=== PATIENT | female | born 1990 | race Caucasian/White ===

== ENCOUNTER 2021-01-10 22:39 | Emergency (ER) | payer OTHER, SELFPAY ==
[2021-01-11 01:00] VITALS: BP 130/73; PULSE 82; RESP 18; TEMP 36.8; O2SAT 99; BMI 32.5
--- NOTE | 2021-01-11 01:04 | ED_ITS ---
HPI - General Adult General Chief complaint: General Medical <Tayo Hull MD - Last Filed: 01/11/21 23:54> Stated complaint: DYSTONIC RXN <Tayo Hull MD - Last Filed: 01/11/21 23:54> Time Seen by Provider: 01/11/21 00:19 <Tayo Hull MD - Last Filed: 01/11/21 23:54> Source: patient and family <Tayo Hull MD - Last Filed: 01/11/21 23:54> Mode of arrival: EMS <Tayo Hull MD - Last Filed: 01/11/21 23:54> Limitations: no limitations <Tayo Hull MD - Last Filed: 01/11/21 23:54> History of Present Illness HPI narrative: Patient no significant past medical history strong family history of seizures, patient's sister has history of seizure. Today just prior to arrival patient all of a sudden noticed left side getting cramps face to state last for about 20 minutes patient stayed alert during that time but was confused afterwards no tonic-clonic activity no incontinence no tongue bite. Patient does suffer with insomnia not on any medication. Denied use of tramadol Wellbutrin. Patient does drink occasionally <Tayo Hull MD - Last Filed: 01/11/21 23:54> Onset (ago): hour(s) <Tayo Hull MD - Last Filed: 01/11/21 23:54> Related Data Allergies/adverse reactions: Allergies Allergy/AdvReac Type Severity Reaction Status Date / Time morphine [MORPHINE] Allergy Mild RASH,HIVES Unverified 07/19/20 16:07 sulfamethoxazole Allergy Mild hives Unverified 07/19/20 16:07 [From BACTRIM] trimethoprim [From BACTRIM] Allergy Mild hives Unverified 07/19/20 16:07 aripiprazole [From ABILIFY] Allergy Unknown LOST MY Unverified 07/19/20 16:07 MEMORY latex [LATEX] Allergy Unknown ITCHING Unverified 07/19/20 16:07 latex Allergy Unknown anaphylaxis Uncoded 06/27/20 00:00 <Tayo Hull MD - Last Filed: 01/11/21 23:54> Review of Systems Review of Systems: Constitutional : No Weight loss, No Fever, No Chills ENT/Mouth : No sore throat, No Rhinorrhea Eyes: No Eye Pain, No Swelling Cardiovascular : No Chest Pain, no palpitations Respiratory : No Cough, No Sputum, no shortness of breath Gastrointestinal : no Nausea, No Vomiting, No Diarrhea, No abdominal Pain, no black stools Genitourinary : No Dysuria, No Urinary Frequency Musculoskeletal : No joint pain, No Myalgias, No Joint Swelling Skin : No Skin Lesions, No rash Neuro : No Weakness, No Numbness, No Dizziness, No Headache Psych : No Anxiety/Panic, No Depression Heme/Lymph: No Bruising, No Lymphadenopathy Endocrine : No Polyuria, No Polydipsia All other systems reviewed and are negative <Tayo Hull MD - Last Filed: 01/11/21 23:54> [facility] Social History Social History: Social History Advance Directives: No <Tayo Hull MD - Last Filed: 01/11/21 23:54> Physical Exam Vital Signs: Vital Signs: Last Vital Signs Temp 98.1 F 01/11/21 02:00 Pulse 79 01/11/21 02:00 Resp 18 01/11/21 02:00 BP 128/79 01/11/21 02:00 Pulse Ox 98 01/11/21 02:00 Body Mass Index 32.5 <Tayo Hull MD - Last Filed: 01/11/21 23:54> Vital Signs: Last Vital Signs Temp 98.1 F 01/11/21 02:00 Pulse 79 01/11/21 02:00 Resp 18 01/11/21 02:00 BP 128/79 01/11/21 02:00 Pulse Ox 98 01/11/21 02:00 Body Mass Index 32.5 <Erika Bowman MD - Last Filed: 01/11/21 03:16> Appearance: Alert. Oriented X3. No acute distress. Eyes: Pupils equal, round and reactive to light. ENT: Pharynx normal. No tongue bite Neck: Normal inspection. Neck supple. CVS: Normal heart rate and rhythm. Pulses normal. Respiratory: No respiratory distress. Breath sounds normal. Abdomen: Soft and nontender. Bowel sounds are present, no mass palpable, no CVA tenderness Skin: Skin warm and dry. Normal skin color. Normal skin turgor. Extremities: No lower extremity edema. Neuro: Oriented X 3. No motor deficit. No sensory deficit. <Tayo Hull MD - Last Filed: 01/11/21 23:54> Course Course Course Narrative: Review of all laboratory investigations negative for acute findings. Results discussed with patient at bedside and she was instructed to follow up with her primary care provider in the next 1-2 days. <Erika Bowman MD - Last Filed: 01/11/21 03:16> Medical Decision Making MDM Narrative Medical decision making narrative: Patient's symptoms likely with complex seizure possible dystonic reaction. Patient advised to follow-up with neurologist. Patient previous labs were stable but today patient POC was 214 in 04/2019 blood sugar was 84 will recheck labs and HbA1c <Tayo Hull MD - Last Filed: 01/11/21 23:54> Lab Data Result diagrams: : 01/11/21 02:11 01/11/21 02:11 <Tayo Hull MD - Last Filed: 01/11/21 23:54> Labs: Lab Results 01/11/21 01/11/21 01/11/21 Range/Units 01:22 02:11 02:11 WBC 7.9 (4.8-10.8) X10*3/uL RBC 4.75 (4.20-5.50) X10*6/uL Hgb 11.0 L (12.0-16.0) g/dl Hct 35.7 L (37-47) % MCV 75.2 L (80-98) fL MCH 23.2 L (27.0-33.0) pg MCHC 30.8 L (31.0-35.0) g/dl RDW 14.6 (11.0-16.0) % Plt Count 156 L (160-400) X10*3/uL MPV 12.1 (9.4-12.3) fL Immature Gran % (Auto) 0.4 (0.0-0.4) % Neut % (Auto) 66.1 (45-73) % Lymph % (Auto) 27.8 (20-40) % Angelina % (Auto) 5.3 (2-11) % Eos % (Auto) 0.1 (0-4) % Baso % (Auto) 0.3 (0-2) % Lymph # (Auto) 2.2 (1.2-4.9) X10*3/uL Angelina # (Auto) 0.4 (0.1-1.2) X10*3/uL Eos # (Auto) 0.0 (0.0-0.4) X10*3/uL Baso # (Auto) 0.0 (0.0-0.2) X10*3/uL Abs Immat Gran (auto) 0.03 (0.00-0.03) X10*3/uL Absolute Neuts (auto) 5.2 (2.0-8.3) X10*3/uL Absolute Nucleated RBC 0.000 (0.0-0.012) X10*3/uL Nucleated RBC % (auto) 0.0 (0.0-0.2) /100WBC Sodium 139 (135-145) mmol/L Potassium 3.9 (3.3-5.1) mmol/L Chloride 104 (96-108) mmol/L Carbon Dioxide 25 (22-29) mmol/L Anion Gap 14 (12-20) BUN 13 (9-16) mg/dL Creatinine 0.71 (0.5-1.4) mg/dL Estim Creat Clear Calc 125.3 Estimated GFR > 60 POC Glucose 214 H (60-115) mg/dL Random Glucose 204 H (60-115) mg/dL Estimat Average Glucose mg/dL Hemoglobin A1c % % Calcium 8.7 (8.4-10.2) mg/dL Urine Color Urine Appearance Urine pH (5.0-8.0) Ur Specific [place] (1.005-1.025) Urine Protein (NEG-TRACE) MG/DL Urine Glucose (UA) (NEG) MG/DL Urine Ketones (NEG) MG/DL Urine Blood (NEG) Urine Nitrite (NEG) Ur Leukocyte Esterase (NEG) Urine Test (NEGATIVE) 01/11/21 01/11/21 01/11/21 Range/Units 02:11 02:20 02:20 WBC (4.8-10.8) X10*3/uL RBC (4.20-5.50) X10*6/uL Hgb (12.0-16.0) g/dl Hct (37-47) % MCV (80-98) fL MCH (27.0-33.0) pg MCHC (31.0-35.0) g/dl RDW (11.0-16.0) % Plt Count (160-400) X10*3/uL MPV (9.4-12.3) fL Immature Gran % (Auto) (0.0-0.4) % Neut % (Auto) (45-73) % Lymph % (Auto) (20-40) % Angelina % (Auto) (2-11) % Eos % (Auto) (0-4) % Baso % (Auto) (0-2) % Lymph # (Auto) (1.2-4.9) X10*3/uL Angelina # (Auto) (0.1-1.2) X10*3/uL Eos # (Auto) (0.0-0.4) X10*3/uL Baso # (Auto) (0.0-0.2) X10*3/uL Abs Immat Gran (auto) (0.00-0.03) X10*3/uL Absolute Neuts (auto) (2.0-8.3) X10*3/uL Absolute Nucleated RBC (0.0-0.012) X10*3/uL Nucleated RBC % (auto) (0.0-0.2) /100WBC Sodium (135-145) mmol/L Potassium (3.3-5.1) mmol/L Chloride (96-108) mmol/L Carbon Dioxide (22-29) mmol/L Anion Gap (12-20) BUN (9-16) mg/dL Creatinine (0.5-1.4) mg/dL Estim Creat Clear Calc Estimated GFR POC Glucose (60-115) mg/dL Random Glucose (60-115) mg/dL Estimat Average Glucose 137 mg/dL Hemoglobin A1c % 6.4 % Calcium (8.4-10.2) mg/dL Urine Color DARK YELLOW Urine Appearance CLEAR Urine pH 6.0 (5.0-8.0) Ur Specific [place] >= 1.030 H (1.005-1.025) Urine Protein NEG (NEG-TRACE) MG/DL Urine Glucose (UA) 250 H (NEG) MG/DL Urine Ketones NEG (NEG) MG/DL Urine Blood NEG (NEG) Urine Nitrite NEG (NEG) Ur Leukocyte Esterase NEG (NEG) Urine Test NEGATIVE (NEGATIVE) <Tayo Hull MD - Last Filed: 01/11/21 23:54> Lab Results 01/11/21 01/11/21 01/11/21 Range/Units 01:22 02:11 02:11 WBC 7.9 (4.8-10.8) X10*3/uL RBC 4.75 (4.20-5.50) X10*6/uL Hgb 11.0 L (12.0-16.0) g/dl Hct 35.7 L (37-47) % MCV 75.2 L (80-98) fL MCH 23.2 L (27.0-33.0) pg MCHC 30.8 L (31.0-35.0) g/dl RDW 14.6 (11.0-16.0) % Plt Count 156 L (160-400) X10*3/uL MPV 12.1 (9.4-12.3) fL Immature Gran % (Auto) 0.4 (0.0-0.4) % Neut % (Auto) 66.1 (45-73) % Lymph % (Auto) 27.8 (20-40) % Angelina % (Auto) 5.3 (2-11) % Eos % (Auto) 0.1 (0-4) % Baso % (Auto) 0.3 (0-2) % Lymph # (Auto) 2.2 (1.2-4.9) X10*3/uL Angelina # (Auto) 0.4 (0.1-1.2) X10*3/uL Eos # (Auto) 0.0 (0.0-0.4) X10*3/uL Baso # (Auto) 0.0 (0.0-0.2) X10*3/uL Abs Immat Gran (auto) 0.03 (0.00-0.03) X10*3/uL Absolute Neuts (auto) 5.2 (2.0-8.3) X10*3/uL Absolute Nucleated RBC 0.000 (0.0-0.012) X10*3/uL Nucleated RBC % (auto) 0.0 (0.0-0.2) /100WBC Sodium 139 (135-145) mmol/L Potassium 3.9 (3.3-5.1) mmol/L Chloride 104 (96-108) mmol/L Carbon Dioxide 25 (22-29) mmol/L Anion Gap 14 (12-20) BUN 13 (9-16) mg/dL Creatinine 0.71 (0.5-1.4) mg/dL Estim Creat Clear Calc 125.3 Estimated GFR > 60 POC Glucose 214 H (60-115) mg/dL Random Glucose 204 H (60-115) mg/dL Estimat Average Glucose mg/dL Hemoglobin A1c % % Calcium 8.7 (8.4-10.2) mg/dL Urine Color Urine Appearance Urine pH (5.0-8.0) Ur Specific [place] (1.005-1.025) Urine Protein (NEG-TRACE) MG/DL Urine Glucose (UA) (NEG) MG/DL Urine Ketones (NEG) MG/DL Urine Blood (NEG) Urine Nitrite (NEG) Ur Leukocyte Esterase (NEG) Urine Test (NEGATIVE) 01/11/21 01/11/21 01/11/21 Range/Units 02:11 02:20 02:20 WBC (4.8-10.8) X10*3/uL RBC (4.20-5.50) X10*6/uL Hgb (12.0-16.0) g/dl Hct (37-47) % MCV (80-98) fL MCH (27.0-33.0) pg MCHC (31.0-35.0) g/dl RDW (11.0-16.0) % Plt Count (160-400) X10*3/uL MPV (9.4-12.3) fL Immature Gran % (Auto) (0.0-0.4) % Neut % (Auto) (45-73) % Lymph % (Auto) (20-40) % Angelina % (Auto) (2-11) % Eos % (Auto) (0-4) % Baso % (Auto) (0-2) % Lymph # (Auto) (1.2-4.9) X10*3/uL Angelina # (Auto) (0.1-1.2) X10*3/uL Eos # (Auto) (0.0-0.4) X10*3/uL Baso # (Auto) (0.0-0.2) X10*3/uL Abs Immat Gran (auto) (0.00-0.03) X10*3/uL Absolute Neuts (auto) (2.0-8.3) X10*3/uL Absolute Nucleated RBC (0.0-0.012) X10*3/uL Nucleated RBC % (auto) (0.0-0.2) /100WBC Sodium (135-145) mmol/L Potassium (3.3-5.1) mmol/L Chloride (96-108) mmol/L Carbon Dioxide (22-29) mmol/L Anion Gap (12-20) BUN (9-16) mg/dL Creatinine (0.5-1.4) mg/dL Estim Creat Clear Calc Estimated GFR POC Glucose (60-115) mg/dL Random Glucose (60-115) mg/dL Estimat Average Glucose 137 mg/dL Hemoglobin A1c % 6.4 % Calcium (8.4-10.2) mg/dL Urine Color DARK YELLOW Urine Appearance CLEAR Urine pH 6.0 (5.0-8.0) Ur Specific [place] >= 1.030 H (1.005-1.025) Urine Protein NEG (NEG-TRACE) MG/DL Urine Glucose (UA) 250 H (NEG) MG/DL Urine Ketones NEG (NEG) MG/DL Urine Blood NEG (NEG) Urine Nitrite NEG (NEG) Ur Leukocyte Esterase NEG (NEG) Urine Test NEGATIVE (NEGATIVE) <Erika Bowman MD - Last Filed: 01/11/21 03:16> Discharge Plan Discharge Clinical Impression: Hyperglycemia Complex partial seizure Qualifiers: Epilepsy type: partial symptomatic Intractability: not intractable Status epilepticus: without status epilepticus Qualified Code(s): G40.209 - Localization-related (focal) (partial) symptomatic epilepsy and epileptic syndromes with complex partial seizures, not intractable, without status epilepticus <Tayo Hull MD - Last Filed: 01/11/21 23:54> Patient Disposition: Home, Self-Care <Tayo Hull MD - Last Filed: 01/11/21 23:54> Instructions: Type 2 Diabetes in Adults: New Diagnosis (ED), New-Onset Seizure in Adults (ED), Diabetes and Exercise (ED) <Tayo Hull MD - Last Filed: 01/11/21 23:54> Additional Instructions: You possibly had complex partial seizure although it is not confirmed. Follow-up with neurologist/PCP for further evaluatio Follow-up with PCP for elevated blood sugar <Tayo Hull MD - Last Filed: 01/11/21 23:54> Referrals: Physician,None [Primary Care Provider] - 2 days <Tayo Hull MD - Last Filed: 01/11/21 23:54> Interventions: ED Discharge Assessment Last Done: 01/11/21 03:26 <Tayo Hull MD - Last Filed: 01/11/21 23:54> Discharge Date/Time: 01/11/21 03:28 <Tayo Hull MD - Last Filed: 01/11/21 23:54>
[2021-01-11 01:30] LABS: Glucose, Whole Blood 214 mg/dL (60-115)
[2021-01-11] MEDS: LORazepam 0.5 MG TABLET PO (01:34)
[2021-01-11 02:00] VITALS: BP 128/79; PULSE 79; RESP 18; TEMP 36.7; O2SAT 98
[2021-01-11 02:17] LABS: Basophils Percent Auto 0.3 % (0-2); Eosinophils Percent Auto 0.1 % (0-4); Hematocrit 35.7 % (37-47); Imm Gran Abs Auto 0.03 X10*3/uL (0.00-0.03); Imm Gran Pct Auto 0.4 % (0.0-0.4); Lymphocytes Absolute Auto 2.2 X10*3/uL (1.2-4.9); Lymphocytes Percent Auto 27.8 % (20-40); MANUAL DIFF FLAG NO; Mean Corpuscular HGB Conc 30.8 g/dl (31.0-35.0); Mean Corpuscular Hemoglobin 23.2 pg (27.0-33.0); Mean Corpuscular Volume 75.2 fL (80-98); Mean Platelet Volume 12.1 fL (9.4-12.3); Monocytes Absolute Auto 0.4 X10*3/uL (0.1-1.2); Monocytes Percent Auto 5.3 % (2-11); Neutrophils Absolute Auto 5.2 X10*3/uL (2.0-8.3); Neutrophils Percent Auto 66.1 % (45-73); Platelet Count 156 X10*3/uL (160-400); Red Blood Count 4.75 X10*6/uL (4.20-5.50); Red Cell Distribution Width 14.6 % (11.0-16.0); White Blood Count 7.9 X10*3/uL (4.8-10.8)
[2021-01-11 02:35] LABS: Glucose Urine UA 250 MG/DL (NEG); Leukocyte Esterase Urine NEG (NEG); Nitrite Urine NEG (NEG); Specific Gravity - Urine >= 1.030 (1.005-1.025); Urine Blood NEG (NEG); Urine Ketones NEG (NEG); Urine Protein NEG (NEG-TRACE)
[2021-01-11 02:41] LABS: UPreg QC Valid YES; Urine Pregnancy NEGATIVE (NEGATIVE)
[2021-01-11 02:43] LABS: Appearance Urine CLEAR; Color Urine DARK YELLOW
[2021-01-11 02:44] LABS: Anion Gap 14 (12-20); Blood Urea Nitrogen 13 mg/dL (9-16); Calcium 8.7 mg/dL (8.4-10.2); Carbon Dioxide 25 mmol/L (22-29); Chloride 104 mmol/L (96-108); Creatinine Clr Calc Pharmacy 125.3; Estimated Glomerular Filt Rate > 60; Glucose Random 204 mg/dL (60-115); Potassium 3.9 mmol/L (3.3-5.1); Sodium 139 mmol/L (135-145)
[2021-01-11 03:41] LABS: Estimated Average Glucose 137 mg/dL; Hemoglobin A1c % 6.4 %
== END 2021-01-11 03:28 | disposition home or self-care (01) ==
PROVIDERS: Student in an Organized Health Care Education/Training Program; Emergency Provider Internal Medicine
DX: G40.209 Localization-related (focal) (partial) symptomatic epilepsy and epileptic syndromes with complex partial seizures, not intractable, without status epilepticus (principal); R73.9 Hyperglycemia, unspecified
CPT/HCPCS: 36415; 80048; 81003; 81025; 82947; 83036; 85025; 99283; 99284

== ENCOUNTER 2021-01-30 01:21 | Emergency (ER) | payer OTHER, SELFPAY ==
[2021-01-30 01:27] VITALS: BP 138/76; PULSE 88; RESP 16; TEMP 36.8; O2SAT 98; BMI 34.3
--- NOTE | 2021-01-30 01:42 | PC.NURSE ---
MD at bedside for primary eval. Pt refusing medication for anxiety at this time. IV established due to SZ history.
[2021-01-30] MEDS: Cyclobenzaprine HCl 10 MG TABLET PO (02:08)
[2021-01-30] MEDS: hydrOXYzine HCL 25 MG TABLET PO (02:09)
--- NOTE | 2021-01-30 02:09 | PC.NURSE ---
Pt calm and cooperative at this time. Pt requesting medication for anxiety and a muscle relaxer for her back. Pt provided with ice packs and a warm blanket for comfort. VSS. Pt awaiting repeat eval by . Continue to monitor.
--- NOTE | 2021-01-30 02:23 | ED_ITS ---
HPI - Anxiety General Chief Complaint: Anxiety Stated Complaint: ?SEIZURE Time Seen by Provider: 01/30/21 02:04 Source: patient Mode of arrival: ambulatory Limitations: no limitations History of Present Illness HPI narrative: Patient has history of anxiety chronic back pain earlier came with her mother who left patient was very agitated and hostile yelling at security had a panic attack fell backward but caught by the staff without any any injury had a pseudo type seizures came here in the ER agitated and angry very anxious hyperventilate unhappy with the staff and provider. History of similar episodes in the past per staff Related Data Previous Rx's Medication Instructions Recorded cyclobenzaprine 10 mg PO Q8H #20 tab 01/30/21 lorazepam [Ativan] 1 mg PO DAILY PRN #14 tab 01/30/21 oxycodone 5 mg PO Q6H PRN #20 tab 01/30/21 Allergies Allergy/AdvReac Type Severity Reaction Status Date / Time morphine [MORPHINE] Allergy Mild RASH,HIVES Unverified 01/30/21 01:32 sulfamethoxazole Allergy Mild hives Unverified 01/30/21 01:32 [From BACTRIM] trimethoprim [From BACTRIM] Allergy Mild hives Unverified 01/30/21 01:32 aripiprazole [From ABILIFY] Allergy Unknown LOST MY Unverified 01/30/21 01:32 MEMORY latex [LATEX] Allergy Unknown ITCHING Unverified 01/30/21 01:32 latex Allergy Unknown anaphylaxis Uncoded 01/30/21 01:32 Review of Systems Review of Systems: Constitutional : No Weight loss, No Fever, No Chills ENT/Mouth : No sore throat, No Rhinorrhea Eyes: No Eye Pain, No Swelling Cardiovascular : No Chest Pain, no palpitations Respiratory : No Cough, No Sputum, no shortness of breath Gastrointestinal : no Nausea, No Vomiting, No Diarrhea, No abdominal Pain, no black stools Genitourinary : No Dysuria, No Urinary Frequency Musculoskeletal : No joint pain, No Myalgias, No Joint Swelling Skin : No Skin Lesions, No rash Neuro : No Weakness, No Numbness, No Dizziness, No Headache Psych : ++Anxiety/Panic, No Depression Heme/Lymph: No Bruising, No Lymphadenopathy Endocrine : No Polyuria, No Polydipsia All other systems reviewed and are negative [facility] Past Medical History Medical History Asthma Diabetes Hypertension Migraines Seizure Social History Social History Advance Directives: No Physical Exam Vital Signs: Vital Signs: Last Vital Signs Temp 98.3 F 01/30/21 01:27 Pulse 84 01/30/21 02:28 Resp 16 01/30/21 02:28 BP 112/58 L 01/30/21 02:28 Pulse Ox 99 01/30/21 02:28 Body Mass Index 34.3 Const: General: comfortable, anxious and other (Crying shouting very anxious) Nutritional Appearance: average body habitus Orientation/consciousness: patient oriented x3 HENMT: Head: Yes normocephalic and Yes atraumatic Eyes: General: appearance normal, both eyes and all related structures Neck: Neck: Yes normal visual inspection, Yes full ROM and No midline deformity Chest: Chest palpation & inspection: normal inspection of the chest and normal palpation of entire chest wall Resp: Effort & Inspection: normal respiratory effort Auscultation: clear to auscultation bilaterally, no crackles, no rales and no rhonchi Cardio: Palpation: normal PMI Rate: regular rate Rhythm: regular rhythm Heart sounds: S1 normal heart sound present and S2 normal heart sound present Peripheral pulses: Peripheral pulses 2+ throughout GI: Inspection: Yes normal to inspection Palpation (GI): Soft to palpation and nontender Auscultation: normal bowel sounds : General: Yes no CVA tenderness Back/Spine/Pelvis: Back: no CVA tenderness Cervical Spine: normal cervical lordosis and cervical ROM normal Thoracic/Lumbar Spine: paraspinal muscle tenderness, No thoracic spinal tenderness and No lumbar spinal tenderness Skin: General skin exam: no rashes or lesions noted Neuro: General: patient oriented x3, tone normal, moves all extremities, no focal motor deficits and CN's II-XI intact bilaterally Extrem: General: Yes normal to inspection, Yes full ROM and Yes normal gait Psych: Speech and movement: Psychomotor agitation in speech present Affect: Anxious affect present Thought content: Normal thought content present Insight: Good insight present (Psych) Judgement: Good judgement present (Psych) MDM - Anxiety MDM Narrative Medical decision making narrative: Patient with acute anxiety attack with chronic back pain felt better after Ativan will discharge patient home on pain medication and Ativan and advised to follow with PCP Discharge Plan Discharge Clinical Impression: Acute anxiety Back pain Qualifiers: Back pain location: low back pain Chronicity: chronic Back pain laterality: bilateral Sciatica presence: without sciatica Qualified Code(s): M54.5 - Low back pain Patient Disposition: Home, Self-Care Instructions: Chronic Back Pain (DC), Anxiety (ED) Additional Instructions: Rest at home, take medication as prescribed follow-up with PCP Prescriptions: New cyclobenzaprine 10 mg tablet 10 mg PO Q8H Qty: 20 RF: 0 oxycodone 5 mg tablet 5 mg PO Q6H PRN (Reason: Pain (Scale Score 4-6)) Qty: 20 RF: 0 lorazepam [Ativan] 1 mg tablet 1 mg PO DAILY PRN (Reason: anxiety) Qty: 14 RF: 0
[2021-01-30 02:28] VITALS: BP 112/58; PULSE 84; RESP 16; O2SAT 99
== END 2021-01-30 02:45 | disposition home or self-care (01) ==
PROVIDERS: Emergency Provider Internal Medicine; PCP Internal Medicine
DX: F41.9 Anxiety disorder, unspecified (principal); M54.5 Low back pain; E11.9 Type 2 diabetes mellitus without complications; I10 Essential (primary) hypertension
CPT/HCPCS: 99283; 99284

== ENCOUNTER 2021-02-07 12:31 | Outpatient (REF) | payer OTHER, SELFPAY | END 2021-02-07 12:32 | disposition home or self-care (01) | LOC: HO.LAB 12:31 | PROVIDERS: Visit Provider Internal Medicine | DX: Z20.822 Contact with and (suspected) exposure to COVID-19 (principal) | CPT/HCPCS: C9803; U0003; U0005 ==

== ENCOUNTER 2022-03-27 10:58 | Outpatient (REF) | payer OTHER, SELFPAY ==
[2022-03-27 11:15] LABS: MANUAL DIFF FLAG NO
[2022-03-27 11:55] LABS: Basophils Percent Auto 0.3 % (0-2); Eosinophils Percent Auto 0.2 % (0-4); Hematocrit 36.4 % (37.0-47.0); Hemoglobin 11.3 g/dl (12.0-16.0); Imm Gran Abs Auto 0.04 X10*3/uL (0.00-0.03); Imm Gran Pct Auto 0.6 % (0.0-0.4); Lymphocytes Absolute Auto 1.9 X10*3/uL (1.2-4.9); Lymphocytes Percent Auto 30.4 % (20-40); Mean Corpuscular Hemoglobin 24.3 pg (27.0-33.0); Mean Corpuscular Volume 78.3 fL (80.0-98.0); Mean Platelet Volume 12.1 fL (9.4-12.3); Monocytes Absolute Auto 0.2 X10*3/uL (0.1-1.2); Monocytes Percent Auto 3.7 % (2-11); Neutrophils Percent Auto 64.8 % (45-73); Platelet Count 147 X10*3/uL (160-400); Red Blood Count 4.65 X10*6/uL (4.20-5.50); Red Cell Distribution Width 15.5 % (11.0-16.0); White Blood Count 6.2 X10*3/uL (4.8-10.8)
[2022-03-27 12:12] LABS: Estimated Average Glucose 143 mg/dL; Hemoglobin A1C 148.6334 umol/L; Hemoglobin A1c % 6.6 %
[2022-03-27 12:20] LABS: Alanine Aminotransferase 65 U/L (0-31); Albumin Level 4.1 g/dL (3.5-5.0); Alkaline Phosphatase 52 U/L (39-117); Anion Gap 12 (12-20); Aspartate Amino Transferase 50 U/L (5-31); Bilirubin Total 1.3 mg/dL (0.0-1.0); Blood Urea Nitrogen 10 mg/dL (9-16); Calcium 8.8 mg/dL (8.4-10.2); Carbon Dioxide 26 mmol/L (22-29); Chloride 107 mmol/L (96-108); Estimated Glomerular Filt Rate > 60; Glucose Random 130 mg/dL (60-115); Potassium 4.1 mmol/L (3.3-5.1); Sodium 141 mmol/L (135-145); Total Protein 7.3 g/dL (6.5-8.0)
[2022-03-27 12:31] LABS: TSH reflex Free T4 1.69 uIU/mL (0.32-4.0); Vitamin D 25-OH Total 15.2 ng/mL (>30)
[2022-03-27 13:00] LABS: Folate 10.4 ng/mL (> or = 4.0); Vitamin B12 430 pg/mL (200-900)
== END 2022-03-27 10:59 | disposition home or self-care (01) ==
LOC: HO.LAB 10:58
PROVIDERS: PCP Internal Medicine; Visit Provider Nurse Practitioner Family
DX: M54.50 Low back pain, unspecified (principal); Z13.29 Encounter for screening for other suspected endocrine disorder; E11.9 Type 2 diabetes mellitus without complications
CPT/HCPCS: 36415; 80053; 82306; 82607; 82746; 83036; 84443; 85025

== ENCOUNTER 2022-11-24 01:46 | Emergency (ER) | payer OTHER, SELFPAY ==
[2022-11-24 01:48] VITALS: BP 123/64; BP 129/64; PULSE 70; PULSE 76; RESP 23; TEMP 36.8; O2SAT 98; O2SAT 99; BMI 38.5
--- NOTE | 2022-11-24 02:05 | ECG_ITS ---
Test Reason : SEIZURE Blood Pressure : / mmHG Vent. Rate : 072 BPM Atrial Rate : 072 BPM P-R Int : 240 ms QRS Dur : 078 ms QT Int : 374 ms P-R-T Axes : 028 001 014 degrees QTc Int : 409 ms Sinus rhythm with 1st degree A-V block Cannot rule out Anterior infarct , age undetermined ; could be related to body habitus and lead placement Abnormal ECG No significant changes when compared with the previous EKG of 11 apr 2019 Referred By: Robles Spencer Electronically Signed By:CLEMENT LONDONO
[2022-11-24] MEDS: LORazepam 1 MG TABLET 2 MG PO (02:13)
[2022-11-24 02:27] LABS: Basophils Percent Auto 0.5 % (0-2); Hematocrit 36.7 % (37.0-47.0); Imm Gran Abs Auto 0.02 X10*3/uL (0.00-0.03); Imm Gran Pct Auto 0.3 % (0.0-0.4); Lymphocytes Absolute Auto 1.8 X10*3/uL (1.2-4.9); MANUAL DIFF FLAG NO; Mean Corpuscular HGB Conc 32.7 g/dl (31.0-35.0); Mean Corpuscular Hemoglobin 24.2 pg (27.0-33.0); Mean Platelet Volume 11.8 fL (9.4-12.3); Monocytes Absolute Auto 0.5 X10*3/uL (0.1-1.2); Monocytes Percent Auto 5.9 % (2-11); Neutrophils Absolute Auto 5.3 x10*3/uL (2.0-8.3); Neutrophils Percent Auto 69.3 % (45-73); Platelet Count 149 X10*3/uL (160-400); Red Blood Count 4.96 X10*6/uL (4.20-5.50); Red Cell Distribution Width 13.9 % (11.0-16.0); White Blood Count 7.6 X10*3/uL (4.8-10.8)
--- NOTE | 2022-11-24 02:30 | PC.NURSE ---
this rn assumed care @ 0148. pt a+o x 4 at this time. pt placed on panel monitor. seizure precautions in place. ekg and blood work obtained. pt provider with warm blanket and portable phone at this time. pt resting comfortably on stretcher at this time
[2022-11-24 02:44] LABS: Lactic Acid 1.3 mmol/L (0.5-2.0)
[2022-11-24 02:49] LABS: Alanine Aminotransferase 51 U/L (0-31); Alkaline Phosphatase 92 U/L (39-117); Anion Gap 15 (12-20); Aspartate Amino Transferase 23 U/L (5-31); Bilirubin Total 1.3 mg/dL (0.0-1.0); Blood Urea Nitrogen 12 mg/dL (9-16); Calcium 9.1 mg/dL (8.4-10.2); Carbon Dioxide 23 mmol/L (22-29); Chloride 104 mmol/L (96-108); Creatinine Clr Calc Pharmacy 136.4; Estimated Glomerular Filt Rate > 60; Glucose Random 316 mg/dL (60-115); Sodium 138 mmol/L (135-145); Total Protein 6.9 g/dL (6.5-8.0)
[2022-11-24 02:51] LABS: Ethanol < 10 mg/dL
[2022-11-24 03:23] VITALS: BP 124/81; PULSE 69; RESP 21; O2SAT 99
[2022-11-24] MEDS: 0.9 % Sodium Chloride 1,000 ML 999 ML IV (03:44)
[2022-11-24] MEDS: Insulin Regular, Human 100 UNIT/ML 3 ML VIAL IVPUSH (03:48)
--- NOTE | 2022-11-24 03:50 | PC.NURSE ---
pt repositioned to back HOB elevated. pt medicated according to mar
[2022-11-24] MEDS: Ketorolac Tromethamine 15 MG/ML VIAL IVPUSH (03:57)
--- NOTE | 2022-11-24 04:01 | PC.NURSE ---
@ 2468 pt reported 08/11 migraine GAO to this rn. This rn made Dr pinto aware at this time. MD placed order for IV ketorolac 15mg. pt medicated according to mar. pt provided with wash cloth to place over eyes to block lights from hallway
--- NOTE | 2022-11-24 04:03 | PC.NURSE ---
@ 4255 pt reported 08/11 migraine GAO to this rn. This rn made Dr emanuel aware at this time. MD placed order for IV ketorolac 15mg. pt medicated according to mar. pt provided with wash cloth to place over eyes to block lights from hallway
[2022-11-24 05:06] LABS: Glucose, Whole Blood 209 mg/dL (60-115)
--- NOTE | 2022-11-24 05:17 | ED_ITS ---
HPI - Seizure General Chief Complaint: Seizure Stated Complaint: SEIZURE Time Seen by Provider: 11/24/22 01:52 Source: patient Mode of arrival: EMS Limitations: no limitations History of Present Illness HPI Narrative: 32-year-old female who presents emergency department for evaluation of possible seizure at home. The patient told me that she took a nap and when she woke up she was feeling dizzy. She felt like she was tumbling. She states she had to crawl up the stairs to the bathroom. She states that while she was sitting on the toilet she was rocking back and forth this caused her to fall forward striking her head on the wall. She states that she did not pass out. She states that she was then shaking all over and could not stop shaking. Her family heard her fall and called 911. 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 She states that she had at least 5 pseudoseizures last week. She states that she is often awake during the seizures and can remember the seizures. She states that she has not been able to see a neurologist. The patient states she does have psychiatric problems which does not want to discuss them patient does not think that there the cause of her seizures. The patient has been seen in the emergency department in the past. In reviewing the ED record from 01/30/2021 the patient apparently was agitated she was having a panic attack, and then hyperventilated and had a pseudo-seizure in the emergency department Seizure History: Yes Place: Home Related Data Previous Rx's Medication Instructions Recorded lorazepam 1 mg tablet (Ativan) 1 mg PO DAILY PRN anxiety #14 tabs 01/30/21 cyclobenzaprine 5 mg tablet 5 mg PO TID PRN muscle spasm #14 03/13/22 tabs ibuprofen 600 mg tablet 600 mg PO Q8H PRN pain #20 tabs 03/13/22 cholecalciferol (vitamin D3) 50 50 mcg PO DAILY #90 tabs 04/17/22 mcg (2,000 unit) tablet metformin 500 mg tablet,extended 500 mg PO DAILY #30 tabs 04/17/22 release 24 hr Allergies Allergy/AdvReac Type Severity Reaction Status Date / Time morphine [MORPHINE] Allergy Mild RASH,HIVES Verified 05/15/22 11:50 sulfamethoxazole Allergy Mild hives Verified 05/15/22 11:50 [From BACTRIM] trimethoprim [From BACTRIM] Allergy Mild hives Verified 05/15/22 11:50 aripiprazole [From ABILIFY] Allergy Unknown LOST MY Verified 05/15/22 11:50 MEMORY latex [LATEX] Allergy Unknown ITCHING Verified 05/15/22 11:50 latex Allergy Unknown anaphylaxis Uncoded 04/17/22 12:38 Review of Systems Review of Systems: Yes all other systems are reviewed and are negative [facility] Past Medical History [facility] Narrative: Past medical history: Borderline diabetes, hypertension, asthma, pseudoseizures. Social history: She does smoke cigarettes, she occasionally drinks alcohol, she denies drug use. Medical History (Updated 11/24/22 @ 05:30 by Robles Spencer MD) Asthma Diabetes Hypertension Migraines Screening for diabetes mellitus Seizure Social History Social History Housing: Apartment Patient Tobacco Use Status: Current everyday Tobacco user Tobacco use type: Cigarette Cigarette Packs Per Day: 4 Smoked in Last 30 Days: Yes e-Cigarette/Vaping Use: Never Used Second Hand Smoke Exposure: Yes Use of substances other than those prescribed or required for medical reasons: No Advance Directives: No Patient : No Current occupational status: unemployed Cognitive needs: No Hearing needs: No Vision needs: No Physical Exam Vital Signs: Vital Signs: Last Vital Signs Temp 98.3 F 11/24/22 01:48 Pulse 69 11/24/22 03:23 Resp 21 H 11/24/22 03:23 BP 124/81 11/24/22 03:23 Pulse Ox 99 11/24/22 03:23 O2 Del Method 11/24/22 03:23 BMI result Body Mass Index 38.5 Vital signs were normal Const: Other: Awake, alert, female patient, she is agitated, she is upset that no one is been able to help her with her seizures, she answers questions appropriate HEENT: Head: Yes normal to inspection, Yes normocephalic and Yes atraumatic Ears: external ears normal General nose exam: Normal external nose present Face and sinus: Yes normal facial exam Mouth: Normal oral and palatal mucosa present Throat: Yes posterior oropharynx normal Eyes: General: appearance normal, both eyes and all related structures Pupils: Equal, round and reactive pupils present Neck: Neck: Yes normal visual inspection, Yes no lymphadenopathy, Yes trachea midline and Yes supple Chest: Chest palpation & inspection: normal inspection of the chest and normal palpation of entire chest wall Resp: Effort & Inspection: normal respiratory effort and able to speak in complete sentences Auscultation: clear to auscultation bilaterally Cardio: Rate: regular rate Rhythm: regular rhythm Heart sounds: S1 normal heart sound present, S2 normal heart sound present and no murmurs GI: Inspection: Yes normal to inspection Palpation (GI): Soft to palpation, nontender and no guarding Auscultation: normal bowel sounds : General: Yes no CVA tenderness Back/Spine/Pelvis: Back: no CVA tenderness Skin: General skin exam: no rashes or lesions noted Neuro: Other: Oriented to person place Cranial nerves: Yes CN's II-XII intact bilaterally and Yes Equal, round and reactive pupils present Cognition (Neuro): normal cognition Motor exam (neuro): 5/5 motor strength present throughout Extrem: General: Yes normal to inspection Psych: Other: Patient is agitated, she is oriented to person place, she appears to be anxious as well Medications Administered Discontinued Medications Generic Name Dose Route Start Last Admin Trade Name Freq PRN Reason Stop Dose Admin Sodium Chloride 1,000 mls @ 999 mls/hr 11/24/22 03:09 11/24/22 03:44 Ns IV 11/24/22 04:09 999 mls/hr .Q1H1M STA Administration Insulin Human Regular 5 unit 11/24/22 03:09 11/24/22 03:48 Insulin Regular, Human 100 Unit/Ml 3 Ml Vial IVPUSH 11/24/22 03:10 5 unit ONCE ONE Administration Ketorolac Tromethamine 15 mg 11/24/22 03:52 11/24/22 03:57 Ketorolac Tromethamine 15 Mg/Ml Vial IVPUSH 11/24/22 03:53 15 mg ONCE STA Administration Lorazepam 2 mg 11/24/22 02:04 11/24/22 02:13 Lorazepam 1 Mg Tablet PO 11/24/22 02:05 2 mg ONCE STA Administration Medical Decision Making Medical Decision Making MDM Narrative: 32-year-old female who was brought to the emergency department by ambulance for evaluation of possible seizure. The patient does have a history of non electrical, pseudoseizures and does not take any medications for electrical seizures. The patient's description of her events this evening are more consistent with a non electrical/pseudoseizures as opposed electrical seizure. Exam was unremarkable. I did order laboratory evaluation to include CBC, CMP, lactic acid, alcohol. The patient did appear to be anxious on presentation and she was treated with Ativan 2 mg orally. 0525: My independent interpretation of the patient's laboratory evaluation is as follows: Platelet count low 149-this is chronic. Glucose elevated 316. Glucose is elevated above her baseline, she states she has borderline diabetes and does not take any medications. She has noted some increased urinary frequency and increased thirst. The patient's hyperglycemia was treated with normal saline IV x1 L and regular insulin 5 units IV. Patient's repeat point of care glucose was 209 after this treatment which is improved. Patient also complained of a headache and she was given Toradol 15 mg IV with improvement of her headache. The patient was advised to increase her fluid intake and to avoid carbohydrates and sugars. She needs to follow-up with her doctor to decide if she needs to be started on antihyperglycemic medications. At this point I do not think that she needs any further treatment for pseudoseizures. Patient will be discharged home. Differential Diagnosis Differential diagnosis includes but is not limited to seizure, pseudo-seizure, hyperventilation syndrome, panic attack, anxiety, metabolic abnormality Lab Data [facility] Lab Attestation statement: I reviewed the patient's lab results. Please see [facility] for my discussion 11/24/22 02:22 11/24/22 02:22 Labs: Lab Results 11/24/22 11/24/22 11/24/22 Range/Units 02:22 02:22 02:22 WBC 7.6 (4.8-10.8) X10*3/uL RBC 4.96 (4.20-5.50) X10*6/uL Hgb 12.0 (12.0-16.0) g/dl Hct 36.7 L (37.0-47.0) % MCV 74.0 L (80.0-98.0) fL MCH 24.2 L (27.0-33.0) pg MCHC 32.7 (31.0-35.0) g/dl RDW 13.9 (11.0-16.0) % Plt Count 149 L (160-400) X10*3/uL MPV 11.8 (9.4-12.3) fL Immature Gran % (Auto) 0.3 (0.0-0.4) % Neut % (Auto) 69.3 (45-73) % Lymph % (Auto) 24.0 (20-40) % [place] % (Auto) 5.9 (2-11) % Eos % (Auto) 0.0 (0-4) % Baso % (Auto) 0.5 (0-2) % Lymph # (Auto) 1.8 (1.2-4.9) X10*3/uL [place] # (Auto) 0.5 (0.1-1.2) X10*3/uL Eos # (Auto) 0.0 (0.0-0.4) X10*3/uL Baso # (Auto) 0.0 (0.0-0.2) X10*3/uL Abs Immat Gran (auto) 0.02 (0.00-0.03) X10*3/uL Absolute Neuts (auto) 5.3 (2.0-8.3) x10*3/uL Absolute Nucleated RBC 0.000 (0.0-0.012) X10*3/uL Nucleated RBC % (auto) 0.0 (0.0-0.2) /100WBC Sodium 138 (135-145) mmol/L Potassium 4.0 (3.3-5.1) mmol/L Chloride 104 (96-108) mmol/L Carbon Dioxide 23 (22-29) mmol/L Anion Gap 15 (12-20) BUN 12 (9-16) mg/dL Creatinine 0.70 (0.5-1.4) mg/dL Estim Creat Clear Calc 136.4 Estimated GFR > 60 POC Glucose (60-115) mg/dL Random Glucose 316 H (60-115) mg/dL Lactic Acid 1.3 (0.5-2.0) mmol/L Calcium 9.1 (8.4-10.2) mg/dL Total Bilirubin 1.3 H (0.0-1.0) mg/dL AST 23 (5-31) U/L ALT 51 H (0-31) U/L Alkaline Phosphatase 92 (39-117) U/L Total Protein 6.9 (6.5-8.0) g/dL Albumin 4.0 (3.5-5.0) g/dL Ethyl Alcohol mg/dL 11/24/22 11/24/22 Range/Units 02:22 05:02 WBC (4.8-10.8) X10*3/uL RBC (4.20-5.50) X10*6/uL Hgb (12.0-16.0) g/dl Hct (37.0-47.0) % MCV (80.0-98.0) fL MCH (27.0-33.0) pg MCHC (31.0-35.0) g/dl RDW (11.0-16.0) % Plt Count (160-400) X10*3/uL MPV (9.4-12.3) fL Immature Gran % (Auto) (0.0-0.4) % Neut % (Auto) (45-73) % Lymph % (Auto) (20-40) % [place]orne % (Auto) (2-11) % Eos % (Auto) (0-4) % Baso % (Auto) (0-2) % Lymph # (Auto) (1.2-4.9) X10*3/uL [place] # (Auto) (0.1-1.2) X10*3/uL Eos # (Auto) (0.0-0.4) X10*3/uL Baso # (Auto) (0.0-0.2) X10*3/uL Abs Immat Gran (auto) (0.00-0.03) X10*3/uL Absolute Neuts (auto) (2.0-8.3) x10*3/uL Absolute Nucleated RBC (0.0-0.012) X10*3/uL Nucleated RBC % (auto) (0.0-0.2) /100WBC Sodium (135-145) mmol/L Potassium (3.3-5.1) mmol/L Chloride (96-108) mmol/L Carbon Dioxide (22-29) mmol/L Anion Gap (12-20) BUN (9-16) mg/dL Creatinine (0.5-1.4) mg/dL Estim Creat Clear Calc Estimated GFR POC Glucose 209 H (60-115) mg/dL Random Glucose (60-115) mg/dL Lactic Acid (0.5-2.0) mmol/L Calcium (8.4-10.2) mg/dL Total Bilirubin (0.0-1.0) mg/dL AST (5-31) U/L ALT (0-31) U/L Alkaline Phosphatase (39-117) U/L Total Protein (6.5-8.0) g/dL Albumin (3.5-5.0) g/dL Ethyl Alcohol < 10 mg/dL Independent Interpretation I performed an independent interpretation of an: EKG Interpretation: My independent interpretation of the patient's 12 EKG done at 02:15 hours: Sinus rhythm with a first-degree AV block with WI interval of 240 milliseconds, normal QRS and QTC durations, inverted T-wave in lead 3 and V1, no ST segment elevation, no ST segment depression, no PACs, no PVCs. Discharge Plan Discharge Clinical Impression: Pseudoseizure, Anxiety, Acute hyperglycemia Patient Disposition: Home, Self-Care Instructions: Diabetic Hyperglycemia (ED) Additional Instructions: Your presentation today is consistent with a non electrical (pseudo-seizure) as opposed to an electrical (epileptic) seizure. Non electrical seizures can be triggered by stress and anxiety. Your blood glucose was elevated at 316. Your treated with normal saline 1 L IV and regular insulin 5 units IV and your blood sugar came down nicely to 209. You need to avoid carbohydrates and food with high sugar. Increase the amount of water that you drink over the next several days to prevent her sugar from getting high. You will need to talk to her doctor about getting started on medications for high glucose/diabetes. Follow-up with your doctor in 2 days. Please return to the emergency department if your symptoms get worse or if you develop any symptoms that are concerning to you. Prescriptions: No Action cholecalciferol (vitamin D3) 50 mcg (2,000 unit) tablet 50 mcg PO DAILY Qty: 90 1RF metformin 500 mg tablet extended release 24 hr 500 mg PO DAILY Qty: 30 2RF lorazepam [Ativan] 1 mg tablet 1 mg PO DAILY PRN (Reason: anxiety) Qty: 14 0RF cyclobenzaprine 5 mg tablet 5 mg PO TID PRN (Reason: muscle spasm) Qty: 14 0RF ibuprofen 600 mg tablet 600 mg PO Q8H PRN (Reason: pain) Qty: 20 0RF
[2022-11-24 05:19] VITALS: BP 110/58; PULSE 95; RESP 20; TEMP 36.9; O2SAT 98
--- NOTE | 2022-11-24 05:28 | PC.NURSE ---
pt sleeping quietly at this time. POC [address] emanuel. awaiting new orders at this time
--- NOTE | 2022-11-24 05:48 | PC.NURSE ---
this rn assisted pt in calling family for ride assistance. family reports they will arrive inn about 20 minutes and will report to the commercial front load operator in the waiting room once they have arrived to pick pt up. pt will remain in room until ride has arrived
--- NOTE | 2022-11-24 05:59 | PC.NURSE ---
iv removed at this time. pt reports no pain. VSS. pt provided with discharge packet. pt verbalized understanding of discharge plan with no additional questions at this time. pt awaiting family for ride. pt waiting in room at this time
--- NOTE | 2022-11-24 06:13 | PC.NURSE ---
pt sister arrived to pick pt up. this rn assisted pt into wheelchair for transport into car. family member brought pt clothing to go home in. pt skin pwd. pt assisted into car
== END 2022-11-24 06:15 | disposition home or self-care (01) ==
PROVIDERS: Emergency Provider Emergency Medicine Emergency Medical Services; PCP Internal Medicine
DX: R56.9 Unspecified convulsions (principal); F41.9 Anxiety disorder, unspecified; E11.65 Type 2 diabetes mellitus with hyperglycemia; R51.9 Headache, unspecified; F17.210 Nicotine dependence, cigarettes, uncomplicated; Z79.84 Long term (current) use of oral hypoglycemic drugs; Z79.899 Other long term (current) drug therapy
CPT/HCPCS: 36415; 80053; 82077; 82947; 83605; 85025; 93005; 96361; 96374; 96375; 99284; 99285; J1885

== ENCOUNTER 2022-11-28 13:39 | Outpatient (REF) | payer OTHER, SELFPAY ==
[2022-11-28 14:08] LABS: MANUAL DIFF FLAG NO
[2022-11-28 14:47] LABS: Basophils Absolute Auto 0.1 X10*3/uL (0.0-0.2); Basophils Percent Auto 0.7 % (0-2); Hematocrit 38.3 % (37.0-47.0); Hemoglobin 12.5 g/dl (12.0-16.0); Imm Gran Abs Auto 0.02 X10*3/uL (0.00-0.03); Imm Gran Pct Auto 0.3 % (0.0-0.4); Lymphocytes Percent Auto 29.7 % (20-40); Mean Corpuscular HGB Conc 32.6 g/dl (31.0-35.0); Mean Corpuscular Hemoglobin 24.4 pg (27.0-33.0); Mean Corpuscular Volume 74.8 fL (80.0-98.0); Mean Platelet Volume 12.5 fL (9.4-12.3); Monocytes Absolute Auto 0.2 X10*3/uL (0.1-1.2); Monocytes Percent Auto 3.5 % (2-11); Neutrophils Absolute Auto 4.5 x10*3/uL (2.0-8.3); Neutrophils Percent Auto 65.8 % (45-73); Platelet Count 173 X10*3/uL (160-400); Red Blood Count 5.12 X10*6/uL (4.20-5.50); Red Cell Distribution Width 13.9 % (11.0-16.0); White Blood Count 6.9 X10*3/uL (4.8-10.8)
[2022-11-28 15:11] LABS: Estimated Average Glucose 157 mg/dL; Hemoglobin A1c % 7.1 %
[2022-11-28 15:21] LABS: Creatinine Urine 186.14 mg/dL; Microalbum/Creatinine Ratio Ur 8.5 ug/mg cr
[2022-11-28 15:21] LABS: Anion Gap 13 (12-20); Blood Urea Nitrogen 9 mg/dL (9-16); Calcium 9.4 mg/dL (8.4-10.2); Carbon Dioxide 27 mmol/L (22-29); Chloride 102 mmol/L (96-108); Estimated Glomerular Filt Rate > 60; Glucose Random 142 mg/dL (60-115); Potassium 4.2 mmol/L (3.3-5.1); Sodium 138 mmol/L (135-145)
[2022-11-28 15:44] LABS: Vitamin D 25-OH Total 12.7 ng/mL (>30)
[2022-12-01 04:21] LABS: HBS Num1 17.09 mIU/mL (0-7.99); HBc Num1 0.25 S/CO (0.00-0.79); HBsAGNum1 0.37 S/CO (0.00-0.99); Hepatitis A Antibody IgM 0.27 Index (0-0.79); Hepatitis B Core Antibody Nonreactive (Nonreactive); Hepatitis B Surface Antigen Negative (Negative); ~HepC Num1 0.13 S/CO (0.00-0.79); ~Hepatitis A Antibody IgM Nonreactive (Nonreactive); ~Hepatitis B Surface Antibody REACTIVE (Nonreactive); ~Hepatitis C Antibody Nonreactive (Nonreactive)
[2022-12-03 14:48] LABS: Glutamic acid decarboxylase Ab <5 IU/mL (<5)
[2022-12-06 18:19] LABS: Insulin Auto Antibody <0.4 U/mL (<0.4)
== END 2022-11-28 13:40 | disposition home or self-care (01) ==
LOC: HO.LAB 13:39
PROVIDERS: Nurse Practitioner Family; PCP Internal Medicine; Visit Provider Internal Medicine
DX: E11.9 Type 2 diabetes mellitus without complications (principal); D64.9 Anemia, unspecified; R79.89 Other specified abnormal findings of blood chemistry
CPT/HCPCS: 36415; 80048; 82043; 82306; 83036; 85025; 86337; 86341; 86704; 86706; 86709; 86803; 87340

== ENCOUNTER 2022-12-09 16:55 | Emergency (ER) | payer OTHER, SELFPAY ==
[2022-12-09 17:17] VITALS: BP 131/87; PULSE 82; RESP 20; TEMP 36.9; O2SAT 98; BMI 37.5
--- NOTE | 2022-12-09 17:35 | ED_ITS ---
HPI - Dental/Oral General Chief complaint: Dental/Oral Stated complaint: Dental pain Time Seen by Provider: 12/09/22 17:33 Source: patient Mode of arrival: ambulatory Limitations: no limitations History of Present Illness HPI Narrative: 32-year-old female here with left upper facial swelling and dental pain for 1 month. Patient reports history of dental caries with infections in the past. Patient is not currently have a dentist. She denies any difficulty breathing or difficulty swallowing. MD Complaint: tooth pain Related Data Previous Rx's Medication Instructions Recorded clindamycin HCl 150 mg capsule 150 mg PO TID #21 caps 12/09/22 ibuprofen 600 mg tablet 600 mg PO Q8H PRN fever or pain 12/09/22 #20 tabs Allergies Allergy/AdvReac Type Severity Reaction Status Date / Time morphine [MORPHINE] Allergy Mild RASH,HIVES Verified 12/04/22 13:52 sulfamethoxazole Allergy Mild hives Verified 12/04/22 13:52 [From BACTRIM] trimethoprim [From BACTRIM] Allergy Mild hives Verified 12/04/22 13:52 aripiprazole [From ABILIFY] Allergy Unknown LOST MY Verified 12/04/22 13:52 MEMORY latex [LATEX] Allergy Unknown ITCHING Verified 12/04/22 13:52 latex Allergy Unknown anaphylaxis Uncoded 12/04/22 13:52 Review of Systems Review of Systems: Yes all other systems are reviewed and are negative Constitutional: Constitutional: Reports no additional constitutional complaints, Denies body ache(s), Denies chills, Denies fever(s), Denies headache(s) and Denies weakness Eyes: Eyes: Reports no additional eye complaints and Denies change in vision ENT: Reports system reviewed and no additional complaints, except as documented, Reports dental pain, Denies dizziness, Denies headache(s), Denies nasal congestion, Denies nasal discharge and Denies neck pain Cardiovascular: Cardiovascular: Reports no additional cardiovascular complaints, Denies chest pain, Denies leg edema and Denies dyspnea Respiratory: Respiratory: Reports no additional respiratory complaints, Denies cough and Denies dyspnea Gastrointestinal: Gastrointestinal: Reports no additional gastrointestinal complaints, Denies abdominal pain, Denies diarrhea, Denies nausea and Denies vomiting Genitourinary: Genitourinary: Reports no additional female genitourinary complaints and Denies urinary incontinence Musculoskeletal: Musculoskeletal: Reports no additional musculoskeletal complaints, Denies back pain, Denies arthralgias, Denies joint swelling, Denies neck pain, Denies numbness and Denies tingling Integumentary/Breasts: Skin/Breast: Reports system reviewed and no additional complaints, except as docu and Denies rash Neurologic: Reports system reviewed and no additional complaints, except as documented, Denies Abnormal speech present, Denies dizziness, Denies headache(s), Denies numbness, Denies tingling and Denies weakness [facility] Past Medical History Attestation statement: The following information was validated with the patient. Source: old records reviewed and nursing notes reviewed Medical History Asthma Diabetes Hypertension Migraines Screening for diabetes mellitus Seizure Social History Social History Housing: Apartment Patient Tobacco Use Status: Current everyday Tobacco user Tobacco use type: Cigarette Cigarette Packs Per Day: 10 e-Cigarette/Vaping Use: Never Used Second Hand Smoke Exposure: Yes Advance Directives: No Advance Directives Information Provided: No service: No Current occupational status: unemployed Cognitive needs: No Hearing needs: No Vision needs: No Physical Exam Vital Signs: Vital Signs: Last Vital Signs Temp 98.5 F 12/09/22 17:17 Pulse 82 12/09/22 17:17 Resp 20 12/09/22 17:17 BP 131/87 12/09/22 17:17 Pulse Ox 98 12/09/22 17:17 O2 Del Method 12/09/22 17:17 BMI result Body Mass Index 37.5 Const: General: cooperative, healthy appearing, comfortable and no acute distress Orientation/consciousness: patient oriented x3 Limitations: no limitations HEENT: Other: no trismus Head: Yes normal to inspection Ears: hearing grossly normal bilaterally and TM's normal bilaterally General nose exam: Normal external nose present Face and sinus: Yes normal facial exam Face images: 1. +slight swelling, no palpable abscess Mouth: Normal oral and palatal mucosa present Teeth and gingiva: caries Teeth image: 1. extensive caries, multiple broken teeth, erythema/swelling at gum line with no palpable abscess Throat: Yes posterior oropharynx normal Eyes: General: appearance normal, both eyes and all related structures Pupils: Equal, round and reactive pupils present Neck: Neck: Yes normal visual inspection, Yes full ROM and Yes no lymphade nopathy Chest: Chest palpation & inspection: normal inspection of the chest Resp: Effort & Inspection: normal respiratory effort Auscultation: clear to auscultation bilaterally Cardio: Rate: regular rate Rhythm: regular rhythm Peripheral pulses: Peripheral pulses 2+ throughout GI: Inspection: Yes normal to inspection Palpation (GI): Soft to palpation and nontender Auscultation: normal bowel sounds Back/Spine/Pelvis: Thoracic/Lumbar Spine: thoracic and lumbar spine normal to inspection Skin: General skin exam: no rashes or lesions noted Neuro: General: patient oriented x3, no focal motor deficits and normal sensation to monofilament Cranial nerves: Yes Equal, round and reactive pupils present Cognition (Neuro): normal cognition Speech: No Abnormal speech present Gait exam (Neuro): Normal gait present Motor exam (neuro): 5/5 motor strength present throughout Extrem: General: Yes normal to inspection Medications Administered Discontinued Medications Generic Name Dose Route Start Last Admin Trade Name Freq PRN Reason Stop Dose Admin Ibuprofen 600 mg 12/09/22 18:03 12/09/22 18:06 Ibuprofen 600 Mg Tablet PO 12/09/22 18:04 600 mg ONCE ONE Administration Medical Decision Making Medical Decision Making MDM Narrative: 32-year-old female with history of dental caries who presents with left upper facial swelling and dental pain for 1 month. On exam patient with extensive dental caries, redness and swelling of the gum line of the left upper area with no obvious abscess with left facial swelling. Swelling is minor. There is no palpable abscess. No evidence of Bubba's angina. Patient will be started on o ral antibiotics with recommendations to follow-up outpatient with dental clinic. Differential Diagnosis Differential Diagnoses: The differential diagnosis associated with the presentation includes Dental abscess, Bubba's angina Discharge Plan Discharge Clinical Impression: Dental caries, Dental abscess Patient Disposition: Home, Self-Care Instructions: Toothache (ED) Additional Instructions: follow-up with dental cliniccase Prescriptions: New clindamycin HCl 150 mg capsule 150 mg PO TID Qty: 21 0RF ibuprofen 600 mg tablet 600 mg PO Q8H PRN (Reason: fever or pain) Qty: 20 0RF Interventions: ED Discharge Assessment Last Done: 12/09/22 18:09 Discharge Date/Time: 12/09/22 18:09
[2022-12-09] MEDS: Ibuprofen 600 MG TABLET PO (18:06)
== END 2022-12-09 18:09 | disposition home or self-care (01) ==
PROVIDERS: Emergency Provider Student in an Organized Health Care Education/Training Program; PCP Internal Medicine
DX: K02.9 Dental caries, unspecified (principal); K04.7 Periapical abscess without sinus; F17.210 Nicotine dependence, cigarettes, uncomplicated; Z71.6 Tobacco abuse counseling; Z79.899 Other long term (current) drug therapy
CPT/HCPCS: 99283